=== PATIENT | male | born 1930 | race Caucasian/White ===

== ENCOUNTER 2017-11-05 22:54 | Emergency (ER) | payer OTHER ==
[2017-11-05 23:51] LABS: Absolute Lymphocytes (CBC) 0.5 K/uL (0.7-4.9); Absolute Monocytes 0.1 K/uL (0.1-1.3); Absolute Neutrophil 13.8 K/uL (1.8-8.0); Basophils % 0.2 % (0-1.3); Eosinophils % 0.1 % (0-4.4); Hematocrit 34.3 % (39.6-49.0); Lymphocytes % 3.5 % (15.3-44.8); MCV 95.8 fL (80-100); MPV 9.8 fL (7.6-11.3); Monocytes % 0.5 % (3.3-12.3); RBC Red Blood Cell Count 3.58 M/uL (4.33-5.43)
[2017-11-05 23:52] LABS: Protime INR 1.02
[2017-11-06 00:03] LABS: Potassium 4.6 mEq/L (3.6-5.0)
[2017-11-06 00:09] LABS: Albumin 3.5 g/dL (3.2-5.5); Bilirubin Direct 0.2 mg/dL (0-0.2); Bilirubin Total 0.7 mg/dL (0.3-1.2); Protein, Total 6.4 g/dL (6.0-8.3)
[2017-11-06 00:20] LABS: Blood Morphology Comment NOT SEEN (NOT SEEN); Platelet Estimate ADEQ
[2017-11-06] MEDS ORDERED: NA CHLORIDE 0.9% 500 ML ONE (01:01)
--- NOTE | 2017-11-06 02:03 | ER ---
Nurse's Notes [facility] Name: Lg Peterson Age: 87 yrs Sex: Male : 1930 Arrival Date: 11/05/2017 Time: 22:58 Bed 6 Private MD: Diagnosis: Unstable angina Presentation: 11/05 22:50 Presenting complaint: EMS states: they were toned out for report of pt c/o chest pain bb pt was given nitro x 3 and aspirin at [facility] prior to their arrival. Transition of care: patient was received from another setting of care (long-term care facility), [facility]. Onset of symptoms was November 05, 2017. Care prior to arrival: Glucose check: 222. 22:50 Method Of Arrival: EMS: [facility] bb 22:50 Acuity: YG 2 bb Historical: - Allergies: 23:07 PENICILLINS; bb - Home Meds: 23:07 lisinopril 5 mg Oral tab 1 tab once daily [Active]; Ativan 1 mg Oral tab 1 tab 3 times bb per day [Active]; aspirin 81 mg Oral chew 1 tab once daily [Active]; Plavix 75 mg Oral tab 1 tab once daily [Active]; Miralax 17 gram/dose Oral powd once daily [Active]; ranitidine HCl 150 mg Oral tab 1 tab once daily [Active]; trazodone 50 mg Oral tab 1 tab daily [Active]; Lexapro 10 mg Oral tab 1 tab once daily [Active]; - PMHx: 23:07 Depression; Anxiety; High Cholesterol; GERD; Hypertension; CAD; bb - PSHx: 23:07 Appendectomy; 3 cardiac stents; back surgery; bb - Immunization history:: Adult Immunizations up to date. - Social history:: Smoking status: Patient/guardian denies using tobacco. Screenin/18 01:00 Abuse screen: Denies threats or abuse. Nutritional screening: No deficits noted. ea Tuberculosis screening: No symptoms or risk factors identified. Fall Risk None identified. Assessment: 11/05 23:17 General: Appears uncomfortable, Behavior is calm, cooperative, appropriate for age. ea Pain: Complains of pain in mid-sternal area Pain does not radiate. Pain currently is 7 out of 10 on a pain scale. Quality of pain is described as aching. Pain: Pain began 1 hour ago. Neuro: Level of Consciousness is awake, alert, obeys commands, Oriented to person, place, time, situation. Cardiovascular: Heart tones present Patient's skin is warm and dry. Respiratory: Airway is patent Respiratory effort is even, unlabored, Respiratory pattern is regular, symmetrical. GI: No signs and/or symptoms were reported involving the gastrointestinal system. : No signs and/or symptoms were reported regarding the genitourinary system. Derm: Skin is fragile, Skin is dry, Skin is normal, Skin temperature is warm. 11/06 00:55 Reassessment: Patient and/or family updated on plan of care and expected duration. Pain ea level reassessed. Patient is alert, oriented x 3, equal unlabored respirations, skin warm/dry/pink. 01:50 Reassessment: Patient and/or family updated on plan of care and expected duration. Pain ea level reassessed. Patient is alert, oriented x 3, equal unlabored respirations, skin warm/dry/pink. 02:30 Reassessment: Patient and/or family updated on plan of care and expected duration. Pain ea level reassessed. Patient is alert, oriented x 3, equal unlabored respirations, skin warm/dry/pink. 03:31 Reassessment: Patient and/or family updated on plan of care and expected duration. Pain ea level reassessed. Patient is alert, oriented x 3, equal unlabored respirations, skin warm/dry/pink. Report called to receiving nurse at [facility], nurse stated she would arrange for transportation. 04:14 Reassessment: Pt resting with eyes closed, respirations even and unlabored, chest ea expansions even and symmetrical, no s/s of pain or discomfort noted at this time. 05:10 Reassessment: [facility] contacted, spoke to Ramonita, reported [facility] ETA at 8 am.ea 05:14 Reassessment: Pt resting with eyes closed, respiration even and unlabored, chest ea expansions even and symmetrical. No s/s of pain or discomfort at this time. Vital Signs: 11/05 23:07 BP 130 / 66; Pulse 98; Resp 18 S; Temp 99.3(O); Pulse Ox 96% on R/A; Weight 90.72 kg bb (R); Height 6 ft. 0 in. (182.88 cm) (R); Pain 6/10; 03/18 00:30 BP 100 / 54; Pulse 92; Resp 21; Pulse Ox 93% ; bp 01:30 BP 96 / 56; Pulse 88; Resp 19; Pulse Ox 97% on R/A; Pain 0/10; ea 02:00 BP 99 / 57; Pulse 96; Resp 18 S; Temp 98.9; Pulse Ox 96% ; ea 03:00 BP 100 / 55; Pulse 91; Resp 18 S; Pulse Ox 97% on R/A; ea 05:00 BP 102 / 56; Pulse 75; Resp 18 S; Pulse Ox 97% on R/A; ea 06:00 BP 101 / 61; Pulse 66; Resp 18 S; Pulse Ox 100% on R/A; ea 06:51 BP 100 / 63; Pulse 66; Resp 19 S; Pulse Ox 98% ; ea 07:55 BP 109 / 53; Pulse 62; Resp 14; Pulse Ox 97% on R/A; sv 11/05 23:07 Body Mass Index 27.12 (90.72 kg, 182.88 cm) bb ED Course: 11/05 22:58 Patient arrived in ED. bb 23:00 Triage completed. bb 23:07 Arm band placed on Patient placed in an exam room, on a stretcher, on cardiac rn, bb on pulse oximetry. EKG completed in triage. Results shown to MD. 23:09 John Armendariz MD is Attending Physician. 23:17 Queenie Godinez, RN is Primary Nurse. ea 23:17 Patient has correct armband on for positive identification. Placed in gown. Bed in low ea position. Call light in reach. Side rails up X2. youth nutritional monitor on. Pulse ox on. NIBP on. 23:34 X-ray completed. Portable x-ray completed in exam room. Patient tolerated procedure tm4 well. 11/06 00:20 Notified ED physician of a critical lab result(s). 20% band count. ak1 00:50 Lactate Sent. bp 00:50 Patient maintains SpO2 saturation greater than 95% on room air. ea 03:48 No provider procedures requiring assistance completed. ea 10:46 IV discontinued, intact, bleeding controlled, No redness/swelling at site. Pressure sv dressing applied. Administered Medications: 00:50 Drug: NS 0.9% 500 ml Route: IV; Rate: bolus; Site: left forearm; bp 01:00 Follow up: IV Status: Completed infusion ea Outcome: 02:03 Discharge ordered by . radha 10:46 Discharged to custodial. Report called to called by Onofre SMITH from production shift supervisor. sv Bedside report given to [facility]. 10:46 Condition: stable 10:46 Discharge instructions given to significant other, Instructed on discharge instructions, follow up and referral plans. Demonstrated understanding of instructions, follow-up care. 10:47 Patient left the ED. sv Signatures: Trinh Keyes, RN RN Zaira Villaseñor tm4 Meghana Kelly RN RN bb Shana Marques RN RN ak1 Queenie Godinez RN RN John Tenorio MD MD gs Peltier, Brian, RN RN bp
--- NOTE | 2017-11-06 02:04 | EDPHYS ---
Physician Documentation [facility] Name: Lg Peterson Age: 87 yrs Sex: Male : 1930 Arrival Date: 11/05/2017 Time: 22:58 Bed 6 Private MD: ED Physician John Armendariz HPI: 11/06 01:54 This 87 yrs old Male presents to ER via EMS with complaints of Chest Pain > gs 30 y/o. 01:54 The patient or guardian reports chest pain that is located primarily in the anterior gs chest wall. Onset: 1 week(s) ago, and became persistent. The pain does not radiate. Associated signs and symptoms: Pertinent negatives: shortness of breath. The chest pain is described as a heaviness. Duration: The patient or guardian reports multiple episodes, that wax and wane, with no pattern. Modifying factors: The symptoms are alleviated by nothing. the symptoms are aggravated by nothing. Severity of pain: At its worst the pain was mild in the emergency department the pain is unchanged. Historical: - Allergies: 11/05 23:07 PENICILLINS; bb - Home Meds: 23:07 lisinopril 5 mg Oral tab 1 tab once daily [Active]; Ativan 1 mg Oral tab 1 tab 3 times bb per day [Active]; aspirin 81 mg Oral chew 1 tab once daily [Active]; Plavix 75 mg Oral tab 1 tab once daily [Active]; Miralax 17 gram/dose Oral powd once daily [Active]; ranitidine HCl 150 mg Oral tab 1 tab once daily [Active]; trazodone 50 mg Oral tab 1 tab daily [Active]; Lexapro 10 mg Oral tab 1 tab once daily [Active]; - PMHx: 23:07 Depression; Anxiety; High Cholesterol; GERD; Hypertension; CAD; bb - PSHx: 23:07 Appendectomy; 3 cardiac stents; back surgery; bb - Immunization history:: Adult Immunizations up to date. - Social history:: Smoking status: Patient/guardian denies using tobacco. ROS: 11/06 01:54 Unable to obtain ROS due to baseline dementia. gs Exam: 01:54 Head/Face: Normocephalic, atraumatic. Eyes: Pupils equal round and reactive to light, gs extra-ocular motions intact. Lids and lashes normal. Conjunctiva and sclera are non-icteric and not injected. Cornea within normal limits. Periorbital areas with no swelling, redness, or edema. ENT: Nares patent. No nasal discharge, no septal abnormalities noted. Tympanic membranes are normal and external auditory canals are clear. Oropharynx with no redness, swelling, or masses, exudates, or evidence of obstruction, uvula midline. Mucous membranes moist. Neck: Trachea midline, no thyromegaly or masses palpated, and no cervical lymphadenopathy. Supple, full range of motion without nuchal rigidity, or vertebral point tenderness. No Meningismus. Chest/axilla: Normal chest wall appearance and motion. Nontender with no deformity. No lesions are appreciated. Cardiovascular: Regular rate and rhythm with a normal S1 and S2. No gallops, murmurs, or rubs. Normal PMI, no JVD. No pulse deficits. Respiratory: Lungs have equal breath sounds bilaterally, clear to auscultation and percussion. No rales, rhonchi or wheezes noted. No increased work of breathing, no retractions or nasal flaring. Abdomen/GI: Soft, non-tender, with normal bowel sounds. No distension or tympany. No guarding or rebound. No evidence of tenderness throughout. Back: No spinal tenderness. No costovertebral tenderness. Full range of motion. Skin: Warm, dry with normal turgor. Normal color with no rashes, no lesions, and no evidence of cellulitis. MS/ Extremity: Pulses equal, no cyanosis. Neurovascular intact. Full, normal range of motion. Neuro: Awake and alert, GCS 15, oriented to person, place, time, and situation. Cranial nerves II-XII grossly intact. Motor strength 5/5 in all extremities. Sensory grossly intact. Cerebellar exam normal. Normal gait. 01:54 Constitutional: The patient appears alert, awake. 01:54 ECG was reviewed by the Attending Physician. Vital Signs: 11/05 23:07 BP 130 / 66; Pulse 98; Resp 18 S; Temp 99.3(O); Pulse Ox 96% on R/A; Weight 90.72 kg bb (R); Height 6 ft. 0 in. (182.88 cm) (R); Pain 6/10; 11/06 00:30 BP 100 / 54; Pulse 92; Resp 21; Pulse Ox 93% ; bp 01:30 BP 96 / 56; Pulse 88; Resp 19; Pulse Ox 97% on R/A; Pain 0/10; ea 02:00 BP 99 / 57; Pulse 96; Resp 18 S; Temp 98.9; Pulse Ox 96% ; ea 03:00 BP 100 / 55; Pulse 91; Resp 18 S; Pulse Ox 97% on R/A; ea 05:00 BP 102 / 56; Pulse 75; Resp 18 S; Pulse Ox 97% on R/A; ea 06:00 BP 101 / 61; Pulse 66; Resp 18 S; Pulse Ox 100% on R/A; ea 06:51 BP 100 / 63; Pulse 66; Resp 19 S; Pulse Ox 98% ; ea 07:55 BP 109 / 53; Pulse 62; Resp 14; Pulse Ox 97% on R/A; sv 11/05 23:07 Body Mass Index 27.12 (90.72 kg, 182.88 cm) bb MDM: 11/05 23:19 Patient medically screened. 11/06 01:54 Differential diagnosis: abnormal EKG, acute myocardial infarction, unstable angina. Data reviewed: vital signs, nurses notes. ED course: dr zuñiga and i spoke to family wish to place on hospice, wants to be discharged to nursing facility. 11/05 23:21 Order name: CPK 11/05 23:21 Order name: Basic Metabolic Panel 11/05 23:21 Order name: CBC with Diff 11/05 23:21 Order name: LFT's 11/05 23:21 Order name: PT-INR 11/05 23:21 Order name: Troponin (emerg Dept Use Only) 11/05 23:23 Order name: BNP 11/05 23:52 Order name: CBC with Automated Diff [facility] 11/05 23:53 Order name: Protime (+INR); Complete Time: 00:19 EDMS 11/06 00:03 Order name: Basic Metabolic Panel; Complete Time: 00:19 EDMS 11/06 00:10 Order name: Liver (Hepatic) Function; Complete Time: 00:19 EDMS 11/06 00:10 Order name: Creatine Phosphokinase; Complete Time: 00:19 EDMS 11/06 00:11 Order name: Troponin (Emerg Dept Use Only); Complete Time: 00:19 EDMS 11/06 00:20 Order name: Manual Differential [facility]DE 11/05 23:21 Order name: XRAY Chest (1 view) 11/05 23:21 Order name: EKG; Complete Time: 23:22 11/05 23:21 Order name: Cardiac monitoring; Complete Time: 23:24 11/05 23:21 Order name: EKG - Nurse/Tech; Complete Time: 23:24 11/05 23:21 Order name: IV Saline Lock; Complete Time: 23:46 11/05 23:21 Order name: Labs collected and sent; Complete Time: 23:46 11/05 23:21 Order name: O2 Per Protocol; Complete Time: 23:46 11/05 23:21 Order name: O2 Sat Monitoring; Complete Time: 23:46 11/06 00:21 Order name: Lactate 11/06 00:21 Order name: BNP B-Type Natriuretic Peptide [facility] 11/06 01:28 Order name: Lactate EDDE EC:54 Rate is 94 beats/min. Rhythm is regular. ND interval is normal. QRS interval is normal. gs T waves are Inverted. Clinical impression: NSR w/ Non-specific ST/T Changes. Interpreted by me. Administered Medications: 00:50 Drug: NS 0.9% 500 ml Route: IV; Rate: bolus; Site: left forearm; bp 01:00 Follow up: IV Status: Completed infusion ea Disposition: 11/06/17 02:03 Discharged to Home. Impression: Unstable angina. - Condition is Stable. - Discharge Instructions: Acute Coronary Syndrome. - Medication Reconciliation Form, Thank You Letter, Antibiotic Education, Prescription Opioid Use form. - Follow up: Private Physician; When: 1 - 2 days; Reason: Re-evaluation by your physician. Signatures: Dispatcher [facility] Trinh Keyes, RN Meghana Limon RN RN bb Starr, Gregory, MD MD gs Peltier, Brian, RN RN bp Antunez, Elena RN ea
--- NOTE | 2017-11-06 06:35 | EKG ---
Test Date: 2017-11-05 Test Time: 22:55:55 Floor And Wall Applier Liquid: GEORGETTE MEASUREMENT RESULTS: Intervals: Rate: 93 FL: 178 QRSD: 106 QT: 362 QTc: 450 [place]: P: 52 FL: 178 QRS: 17 T: 94 INTERPRETIVE STATEMENTS: Normal sinus rhythm Septal infarct, age undetermined T wave abnormality, consider anterior ischemia Abnormal ECG Compared to ECG 05/14/2015 08:30:37 Myocardial infarct finding now present Possible ischemia now present T-wave abnormality still present Electronically Signed On 11-06-17 06:34:15 CDT by Dimitri Miranda
--- NOTE | 2017-11-06 06:35 | EKG ---
Test Date: 2017-11-06 Test Time: 01:07:25 Head Start Coordinator: GEORGETTE MEASUREMENT RESULTS: Intervals: Rate: 94 OK: 150 QRSD: 100 QT: 388 QTc: 485 [place]: P: 32 OK: 150 QRS: 6 T: 140 INTERPRETIVE STATEMENTS: Normal sinus rhythm Septal infarct, age undetermined ST & T wave abnormality, consider inferior ischemia ST & T wave abnormality, consider anterolateral ischemia Abnormal ECG Compared to ECG 11/05/2017 22:55:55 ST (T wave) deviation now present T-wave abnormality no longer present Myocardial infarct finding still present Possible ischemia still present Electronically Signed On 11-06-17 06:34:05 CDT by Dimitri Miranda
[2017-11-06 10:54] VITALS: TEMP 98.9
[2017-11-06 11:00] VITALS: BP 109/53; O2SAT 97
--- NOTE | 2017-11-06 13:13 | RAD REPORT ---
EXAM DESCRIPTION: RAD - Chest Single View - 11/05/2017 11:35 pm CLINICAL HISTORY: Chest pain. COMPARISON: None. FINDINGS: Portable technique limits examination quality. The lungs are underinflated but grossly clear. The heart is normal in size. No displaced fractures. IMPRESSION: No acute intrathoracic process suspected.
== END 2017-11-06 10:47 | disposition home or self-care (01) ==
LOC: ER 22:54
DX: I20.0 Unstable angina (principal); I10 Essential (primary) hypertension; E78.00 Pure hypercholesterolemia, unspecified; F32.9 Major depressive disorder, single episode, unspecified; Z88.0 Allergy status to penicillin; Z79.01 Long term (current) use of anticoagulants; Z79.82 Long term (current) use of aspirin
CPT/HCPCS: 36415; 71045; 80048; 80076; 82550; 83605; 83880; 84484; 85025; 85610; 93005; 99285